=== PATIENT | male | born 1965 | race Caucasian/White ===

== ENCOUNTER → 2017-05-24 | Outpatient (CLI) | payer BC ==
--- NOTE | 2017-05-24 09:56 | KCIC ---
PQRS Compliance Statement: One or more of the following individualized dose reduction techniques were utilized for this examination: 1. Automated exposure control 2. Adjustment of the mA and/or kV according to patient size 3. Use of iterative reconstruction technique CT CHEST WO CONTRAST Clinical Indication: Smoker x30 years, wheezing, shortness of air. Comparison: None. Technique: Helical CT imaging of the chest is performed without IV contrast. Findings: There are several subcentimeter mediastinal lymph nodes. No adenopathy in the chest. Limited evaluation of the edgardo without IV contrast. The great vessels are normal caliber. Cardiac size normal, no pericardial effusion. No pleural effusion. The central airways are patent. The lungs are clear. There is a 12 mm left adrenal adenoma based on attenuation. No compression fracture in the thoracic spine. IMPRESSION: 1. No acute cardiopulmonary process. 2. Small left adrenal adenoma. Electronically signed by: Sunday Rivera MD (05/24/2017 9:52 AM) [id number]
== END | disposition home or self-care (01) ==
LOC: KCIC CT 08:08
PROVIDERS: ATTEND Nurse Practitioner Family
DX: D35.02 Benign neoplasm of left adrenal gland (principal); R06.2 Wheezing; F17.200 Nicotine dependence, unspecified, uncomplicated
CPT/HCPCS: 71250

== ENCOUNTER → 2019-07-24 | Outpatient (CLI) | payer BC ==
--- NOTE | 2019-07-24 17:44 | KCIC ---
Study: CERVICAL SPINE 2-3V Indication: Cervical radiculopathy. Comparison: None. Findings: Straightening of cervical lordosis. Multilevel ventral osteophyte formation. Mild discogenic arthrosis at a few levels without significant disc space collapse. No acute fracture or aggressive osseous process. Scattered levels exhibiting relatively mild uncovertebral joint hypertrophy though the uncovertebral joints are not well evaluated above C4. Normal prevertebral soft tissue thickness. Unremarkable lung apices. Impression: Scattered levels with uncovertebral joint hypertrophy and discogenic arthrosis however there is no significant disc space collapse. Straightening of cervical lordosis without listhesis. Electronically signed by: MATT RAMOS MD (07/24/2019 5:41 PM) [facility]
== END | disposition home or self-care (01) ==
LOC: KCIC 15:13
PROVIDERS: ATTEND Nurse Practitioner Gerontology
DX: M25.78 Osteophyte, vertebrae (principal); M54.12 Radiculopathy, cervical region; M89.39 Hypertrophy of bone, multiple sites
CPT/HCPCS: 72040

== ENCOUNTER → 2019-08-01 | Outpatient (CLI) | payer BC ==
--- NOTE | 2019-08-01 09:41 | KCIC ---
MRI of the cervical spine without contrast 08/01/2019 CLINICAL HISTORY: Neck pain which radiates down the left arm. TECHNIQUE: Unenhanced T1-weighted, T2-weighted and inversion recovery sagittal and gradient echo and T2-weighted axial images of the cervical spine were obtained. FINDINGS: Comparison is made to radiographs of the cervical spine dated 07/24/2019. There is straightening of the normal cervical lordosis. Degenerative signal changes are seen involving all of the disks of the cervical spine. Degenerative signal changes are seen within the marrow surrounding these discs. Loss of height of the C5-6 and C6-7 discs is noted. No area of abnormal signal intensity is seen involving the cervical spinal cord. At the C2-3 disc space there is mild generalized disc bulge. Degenerative changes are seen involving the uncovertebral and facet joints, left greater than right. These findings when combined do not result in significant central spinal canal or neural foraminal stenosis. At the C3-4 disc space there is a mild to moderate generalized disc bulge. Superimposed on the disc bulge is a left paracentral disc osteophyte complex. This measures 3 mm in AP diameter. Degenerative changes are seen involving the uncovertebral facet joints, left greater than right. These findings when combine result in mild left greater than right central spinal canal stenosis without evidence of cord impingement. Mild to moderate left greater than right neural foraminal stenosis is seen. At the C4-5 disc space there is a mild generalized disc bulge. Degenerative changes are seen involving the uncovertebral and facet joints, right greater than left. These findings do not result in significant central spinal canal or neural foraminal stenosis. At the C5-6 disc space there is a mild generalized disc bulge. Degenerative changes are seen involving the uncovertebral and facet joints, left greater than right. These findings when combined do not result in significant central spinal canal stenosis. Mild left greater than right neural foraminal stenosis is seen. At the C6-7 disc space there is a mild generalized disc bulge. Degenerative changes are seen involving the uncovertebral and facet joints bilaterally. These findings do not result in significant central spinal canal stenosis. Mild bilateral neural foraminal stenosis is seen. At the C7-T1 disc space there is a minimal generalized disc bulge. Degenerative changes are seen involving the facet joints bilaterally. These findings do not result in significant central spinal canal or neural foraminal stenosis. IMPRESSION: Degenerative changes are seen throughout the cervical spine. These findings result in mild left greater than right central spinal canal stenosis without evidence of cord impingement at C3-4. Mild to moderate left greater than right neural foraminal stenosis is seen at C3-4. Mild left greater than right neural foraminal stenosis is seen at C5-6. Mild bilateral neural foraminal stenosis is seen at C6-7. Electronically signed by: David Huynh MD (08/01/2019 9:39 AM) [id number]
== END | disposition home or self-care (01) ==
LOC: KCIC MRI 07:54
PROVIDERS: ATTEND Nurse Practitioner Gerontology
DX: M50.13 Cervical disc disorder with radiculopathy, cervicothoracic region (principal); M48.02 Spinal stenosis, cervical region; M25.78 Osteophyte, vertebrae
CPT/HCPCS: 72141